=== PATIENT | female | born 1995 | race Asian ===

== ENCOUNTER 2018-10-22 16:38 | Emergency (ER) | payer OTHER ==
[~2018-10-22] VITALS: Ht 167.6 cm; Wt 108.4 kg
[2018-10-22] MEDS ORDERED: MUCINEX DM ER1 EAC1 PO (22:28)
[2018-10-22] MEDS ORDERED: ZITHROMAX500 MG PO (22:28)
[2018-10-22] MEDS ORDERED: PEPCID AC20 MG PO (22:28)
[2018-10-22] MEDS ORDERED: KETO10TA2 PO (22:28)
== END 2018-10-22 22:35 | disposition home or self-care (01) ==
LOC: ER 16:38
DX: J03.80 Acute tonsillitis due to other specified organisms (principal); K29.70 Gastritis, unspecified, without bleeding; J06.9 Acute upper respiratory infection, unspecified